=== PATIENT | male | born 1980 | race African-American/Black ===

== ENCOUNTER 2016-12-02 01:00 | Emergency (ER) | payer BC | END 2016-12-02 01:21 | disposition home or self-care (01) | LOC: D.ER 01:00 | DX: F41.9 Anxiety disorder, unspecified (principal); K21.9 Gastro-esophageal reflux disease without esophagitis; K58.9 Irritable bowel syndrome, unspecified ==

== ENCOUNTER 2017-04-11 13:48 | Emergency (ER) | payer BC | END 2017-04-11 15:19 | disposition home or self-care (01) | LOC: D.ER 13:48 | DX: H66.91 Otitis media, unspecified, right ear (principal); H92.01 Otalgia, right ear; F17.200 Nicotine dependence, unspecified, uncomplicated ==

== ENCOUNTER → 2018-09-12 09:52 | Outpatient (CLI) | payer MEDICAID | END | disposition home or self-care (01) | LOC: D.MRI 09:00 | PROVIDERS: ATTEND Nurse Practitioner Family | DX: M47.812 Spondylosis without myelopathy or radiculopathy, cervical region (principal) ==

== ENCOUNTER 2019-06-08 16:09 | Emergency (ER) | payer MEDICAID ==
[~2019-06-08] VITALS: Ht 185.4 cm; Wt 90.0 kg
[2019-06-08 16:35] VITALS: Ht 185.4 cm; Wt 90.0 kg
[2019-06-08] MEDS ORDERED: KLOR-CON 1010 MEQ PO (16:37)
[2019-06-08 17:29] LABS: HEMATOCRIT 43.4 % (42.0-54.0); HEMOGLOBIN 15.6 g/dL (13.5-17.5); MCH 31.5 pg (26.0-34.0); MCHC 35.9 g/dL (31.0-37.0); MCV 87.5 fL (80.0-100.0); MEAN PLATELET VOLUME 9.5 fL (7.4-10.4); PLATELET COUNT 268 10x3/uL (130-400); RBC 4.96 10x6/uL (4.20-6.10); RDW 12.6 % (11.5-14.5); WBC 5.7 10x3/uL (4.8-10.8)
[2019-06-08 17:37] LABS: CALC OSMOLALITY 274 mosm/kg (275-300); CALCIUM 9.8 mg/dL (8.5-10.1); CARBON DIOXIDE 29.3 mmol/L (21.0-32.0); CHLORIDE - SERUM 99 mmol/L (98-107); GLUCOSE 111 mg/dL (74-106); POTASSIUM - SERUM 3.4 mmol/L (3.5-5.1); SODIUM 138 mmol/L (136-145); UREA NITROGEN 8 mg/dL (7-18); eGFR NON AFRICAN AMERICAN 88 mL/min (90-120)
[2019-06-08 17:38] LABS: APPEARANCE CLEAR (CLEAR); BILIRUBIN NEGATIVE (NEGATIVE); COLOR YELLOW (YELLOW); GLUCOSE NEGATIVE (NEGATIVE); KETONE NEGATIVE (NEGATIVE); NITRITE NEGATIVE (NEGATIVE); PROTEIN TRACE mg/dL (NEGATIVE); UROBILINOGEN NORMAL (NORMAL)
[2019-06-08 17:39] LABS: BACTERIA FEW /hpf (NEGATIVE); EPITHELIAL CELLS 0-5 /hpf (0-5); MUCUS >1+ /lpf (NONE SEEN); RED CELLS - URINE 0-5 /hpf (0-5); WHITE CELLS - URINE 0-5 /hpf (NEGATIVE)
[2019-06-08 17:48] LABS: ALBUMIN 4.4 g/dL (3.4-5.0); ALKALINE PHOSPHATASE 43 U/L (46-116); ALT (SGPT) 21 U/L (10-68); AMYLASE - SERUM 33 U/L (25-115); BILIRUBIN - TOTAL 0.53 mg/dL (0.2-1.3); LIPASE 79 U/L (73-393); PROTEIN - SERUM 8.2 g/dL (6.4-8.2)
[2019-06-08 18:00] LABS: BASOPHILS 1 % (0-2); LYMPHOCYTES 56 % (15-50); MONOCYTES 3 % (2-11); NEUTROPHILS 40 % (40-80); PLATELET ESTIMATE NORMAL; TARGET CELLS OCC; TEAR DROP CELLS 1+
[2019-06-08 18:02] LABS: ROULEAUX 1+
[2019-06-08 20:15] VITALS: BP 125/70
== END 2019-06-08 20:15 | disposition home or self-care (01) ==
LOC: D.ER 16:09
PROVIDERS: Emergency Medicine
DX: E86.0 Dehydration (principal); Z20.2 Contact with and (suspected) exposure to infections with a predominantly sexual mode of transmission; R31.9 Hematuria, unspecified; R73.9 Hyperglycemia, unspecified; E87.6 Hypokalemia

== ENCOUNTER 2019-06-22 03:33 | Emergency (ER) | payer MEDICAID ==
[~2019-06-22] VITALS: Ht 185.4 cm; Wt 86.4 kg
[~2019-06-22 03:33] MED LIST: KLOR-CON 1010 MEQ PO
[2019-06-22 03:41] VITALS: Ht 185.4 cm; Wt 86.4 kg
[2019-06-22 04:21] LABS: BASOPHILS 0.4 % (0-2); EOSINOPHILS 1.5 % (0-7); HEMATOCRIT 41.3 % (42.0-54.0); HEMOGLOBIN 14.4 g/dL (13.5-17.5); IMMATURE GRANULOCYTES 0.1 % (0-5); LYMPHOCYTES 57.3 % (15-50); MCH 31.1 pg (26.0-34.0); MCHC 34.9 g/dL (31.0-37.0); MCV 89.2 fL (80.0-100.0); MEAN PLATELET VOLUME 9.6 fL (7.4-10.4); MONOCYTES 7.9 % (2-11); NEUTROPHILS 32.8 % (40-80); RBC 4.63 10x6/uL (4.20-6.10); RDW 12.9 % (11.5-14.5); WBC 7.2 10x3/uL (4.8-10.8)
[2019-06-22 04:22] LABS: PLATELET COUNT 334 10x3/uL (130-400)
[2019-06-22 04:33] LABS: CALC OSMOLALITY 273 mosm/kg (275-300); CALCIUM 8.9 mg/dL (8.5-10.1); CARBON DIOXIDE 26.5 mmol/L (21.0-32.0); CHLORIDE - SERUM 101 mmol/L (98-107); GLUCOSE 129 mg/dL (74-106); SODIUM 137 mmol/L (136-145); UREA NITROGEN 8 mg/dL (7-18); eGFR NON AFRICAN AMERICAN 88 mL/min (90-120)
[2019-06-22 04:39] LABS: POTASSIUM - SERUM 3.8 mmol/L (3.5-5.1)
[2019-06-22 04:40] LABS: ALBUMIN 3.7 g/dL (3.4-5.0); ALKALINE PHOSPHATASE 36 U/L (46-116); ALT (SGPT) 39 U/L (10-68); BILIRUBIN - TOTAL 0.28 mg/dL (0.2-1.3); PROTEIN - SERUM 7.6 g/dL (6.4-8.2)
[2019-06-22 05:20] LABS: APPEARANCE CLEAR (CLEAR); BILIRUBIN NEGATIVE (NEGATIVE); COLOR YELLOW (YELLOW); GLUCOSE NEGATIVE (NEGATIVE); KETONE NEGATIVE (NEGATIVE); NITRITE NEGATIVE (NEGATIVE); PROTEIN NEGATIVE (NEGATIVE); SPECIFIC GRAVITY 1.015 (1.005-1.020); UROBILINOGEN NORMAL (NORMAL)
[2019-06-22 06:11] VITALS: BP 109/78
[2019-06-27 15:09] LABS: CHLAMYDIA TRACHOMATIS, NAA Negative (Negative)
== END 2019-06-22 06:11 | disposition home or self-care (01) ==
LOC: D.ER 03:33
PROVIDERS: Emergency Medicine
DX: A64 Unspecified sexually transmitted disease (principal); R11.0 Nausea